=== PATIENT | male | born 2000 | race Caucasian/White ===

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

== ENCOUNTER 2020-01-06 00:50 | Emergency (ER) | payer OTHER ==
[~2020-01-06] VITALS: Ht 182.9 cm; Wt 105.7 kg
[2020-01-06 00:56] VITALS: BP 167/92; Ht 182.9 cm; Wt 105.7 kg
== END 2020-01-06 01:50 | disposition home or self-care (01) ==
LOC: ED 00:50
DX: S46.912A Strain of unspecified muscle, fascia and tendon at shoulder and upper arm level, left arm, initial encounter (principal); J45.909 Unspecified asthma, uncomplicated; W17.89XA Other fall from one level to another, initial encounter; Y93.89 Activity, other specified; Y92.89 Other specified places as the place of occurrence of the external cause; Y99.8 Other external cause status
CPT/HCPCS: Q0092

== ENCOUNTER 2020-07-15 11:36 | Emergency (ER) | payer OTHER ==
[~2020-07-15] VITALS: Ht 172.7 cm; Wt 106.6 kg
[2020-07-15 11:47] VITALS: Ht 172.7 cm; Wt 106.6 kg
[2020-07-15] MEDS ORDERED: ANTIBIOTIC O500 U/GM TOP (12:39)
[2020-07-15 13:28] VITALS: BP 145/71
== END 2020-07-15 13:28 | disposition home or self-care (01) ==
LOC: ED 11:36
DX: S61.012A Laceration without foreign body of left thumb without damage to nail, initial encounter (principal); J45.909 Unspecified asthma, uncomplicated; W45.8XXA Other foreign body or object entering through skin, initial encounter; Y93.89 Activity, other specified; Y92.89 Other specified places as the place of occurrence of the external cause; Y99.8 Other external cause status